=== PATIENT | female | born 1970 | race Native Hawaiian/Other Pacific Islander ===

== ENCOUNTER 2020-03-03 10:17 | Outpatient (CLI) | payer OTHER | END 2020-03-03 23:32 | disposition home or self-care (01) | LOC: MAMMO 10:17 | DX: Z12.31 Encounter for screening mammogram for malignant neoplasm of breast (principal) ==

== ENCOUNTER 2020-03-24 09:04 | Outpatient (CLI) | payer OTHER | END 2020-03-24 22:25 | disposition home or self-care (01) | LOC: RESP 09:04 | DX: I50.22 Chronic systolic (congestive) heart failure (principal) ==

== ENCOUNTER 2021-11-04 14:37 | Outpatient (CLI) | payer OTHER | END 2021-11-04 19:15 | disposition home or self-care (01) | LOC: RAD 14:37 | PROVIDERS: ATTEND Registered Nurse | DX: Z01.818 Encounter for other preprocedural examination (principal) ==

== ENCOUNTER 2022-02-16 09:59 | Outpatient (CLI) | payer OTHER | END 2022-02-16 19:29 | disposition home or self-care (01) | LOC: RESP 09:59 | PROVIDERS: ATTEND Physician Assistant | DX: R07.89 Other chest pain (principal); I42.8 Other cardiomyopathies; Z12.31 Encounter for screening mammogram for malignant neoplasm of breast ==

== ENCOUNTER 2022-03-03 08:51 | Outpatient (CLI) | payer OTHER ==
[~2022-03-03] VITALS: Ht 175.3 cm; Wt 102.1 kg
== END 2022-03-03 23:21 | disposition home or self-care (01) ==
LOC: NM 08:51
PROVIDERS: ATTEND Physician Assistant
DX: R07.89 Other chest pain (principal); I42.8 Other cardiomyopathies
CPT/HCPCS: A9500; J2785

== ENCOUNTER 2022-07-16 10:07 | Outpatient (CLI) | payer OTHER | END 2022-07-16 19:24 | disposition home or self-care (01) | LOC: RAD 10:07 | PROVIDERS: ATTEND Internal Medicine | DX: Z13.820 Encounter for screening for osteoporosis (principal) ==